=== PATIENT | female | born 1955 | race Native Hawaiian/Other Pacific Islander ===

== ENCOUNTER 2021-04-27 15:45 | Emergency (ER) | payer OTHER ==
[~2021-04-27] VITALS: Ht 167.6 cm; Wt 59.0 kg
[2021-04-27 15:45] VITALS: BP 160/89; TEMP 97.4
[2021-04-27 16:20] LABS: PLATELET COUNT 209 K/uL (152-353)
[2021-04-27 16:38] LABS: POTASSIUM 3.3 mmol/L (3.6-5.2)
[2021-04-28] MEDS ORDERED: ALEN70TA19 PO (08:38)
[2021-04-28] MEDS ORDERED: COATED ASPIRIN325 MG PO (08:40)
[2021-04-28] MEDS ORDERED: ESCITALOPRAM10 MG PO (08:41)
[2021-04-28] MEDS ORDERED: CLOPIDOGREL75 MG PO (08:41)
[2021-04-28] MEDS ORDERED: FISH OIL OMEGA-1 CAP PO (08:43)
[2021-04-28] MEDS ORDERED: INSU100I2 SC ×2 (08:44→08:50)
[2021-04-28] MEDS ORDERED: LISI10TA11 PO (08:45)
[2021-04-28] MEDS ORDERED: OLANZAPINE2.5 MG PO (08:46)
[2021-04-28] MEDS ORDERED: OLANZAPINE7.5 MG PO (08:47)
[2021-04-28] MEDS ORDERED: COMBIGAN0.2 MG/0.5 OPTH (08:49)
[2021-04-28] MEDS ORDERED: CARV12.5 PO (08:50)
[2021-04-28] MEDS ORDERED: METF500T PO (08:51)
[2021-04-28] MEDS ORDERED: INSULIN LI100 UNIT/1 SC (08:54)
[2021-04-28] MEDS ORDERED: FEVERALL ADULT650 MG PR (08:56)
[2021-04-28] MEDS ORDERED: [UNRECOGNIZED DRUG - OTHER] PO (08:59)
[2021-04-28] MEDS ORDERED: CARBOXYMETHYLCE OPTH (09:01)
[2021-04-28] MEDS ORDERED: BISACODYL LAXAT10 MG PR (09:02)
[2021-04-28] MEDS ORDERED: BISACODYL5 M1 PO (09:03)
== END 2021-04-27 17:42 | disposition still patient (30) ==
LOC: ED 15:45
PROVIDERS: Emergency Medicine
DX: R46.89 Other symptoms and signs involving appearance and behavior (principal); F32.9 Major depressive disorder, single episode, unspecified; Z11.52 Encounter for screening for COVID-19; Z04.6 Encounter for general psychiatric examination, requested by authority
CPT/HCPCS: 80053; 85027; 87635; 93005; 99283; U0003